=== PATIENT | female | born 1985 | race Caucasian/White ===

== ENCOUNTER 2022-06-12 01:31 | Emergency (ER) | payer BC ==
[~2022-06-12] VITALS: Ht 165.1 cm; Wt 75.0 kg
[2022-06-12 02:06] VITALS: BP 118/71
[2022-06-12] MEDS ORDERED: T3 PO (11:52)
[2022-06-12] MEDS ORDERED: ONDA4TAB50 PO (11:52)
== END 2022-06-12 04:01 | disposition left against medical advice (07) ==
LOC: ER 01:31
DX: Z53.21 Procedure and treatment not carried out due to patient leaving prior to being seen by health care provider (principal); R11.2 Nausea with vomiting, unspecified; R10.9 Unspecified abdominal pain; E11.9 Type 2 diabetes mellitus without complications

== ENCOUNTER 2022-06-12 08:04 | Emergency (ER) | payer BC ==
[~2022-06-12] VITALS: Ht 165.1 cm; Wt 75.0 kg
[2022-06-12] MEDS ORDERED: METOCLOPRAMIDE HCL 10MG/2ML VIAL IV STA (08:10)
[2022-06-12] MEDS ORDERED: SODIUM CHLORIDE 0.9% 1,000 ML IV ONE (08:15)
[2022-06-12 10:13] LABS: HEMATOCRIT. 39.4 % (36.0-48.0); HEMOGLOBIN. 13.3 g/dL (12.0-16.0); MEAN CORPUSCULAR HEMOGLOBIN 28.7 pg (28.0-32.0); MEAN CORPUSCULAR VOLUME 84.8 fL (81.0-99.0); MEAN PLATELET VOLUME 6.8 fl (7.4-10.4); PLATELET 403 x1000/uL (130-400); RED BLOOD CELL COUNT 4.65 mill/uL (4.2-5.4); RED CELL DISTRIBUTION WIDTH 12.7 % (11.6-14.6)
[2022-06-12] MEDS ORDERED: MORPHINE SULFATE 4 MG/ML CPJ (NOT FOR IM USE) IV ONE (10:15)
[2022-06-12 10:20] LABS: CHLORIDE 98 mEq/L (98-107)
[2022-06-12 10:26] LABS: INR 1.1; PROTHROMBIN TIME 11.5 sec (9.6-11.0)
[2022-06-12] MEDS ORDERED: METOCLOPRAMIDE HCL 10MG/2ML VIAL IV NR (10:30)
[2022-06-12] MEDS ORDERED: ONDANSETRON HCL 4MG/2ML INJ IV ONE (10:30)
[2022-06-12 10:32] LABS: HCG SCREEN NEGATIVE
[2022-06-12] MEDS ORDERED: DIPHENHYDRAMINE 50MG/ML VIAL IV ONE (10:45)
[2022-06-12 10:47] LABS: PLATELET ESTIMATE NORMAL
[2022-06-12] MEDS ORDERED: T3 PO (11:52)
[2022-06-12] MEDS ORDERED: ONDA4TAB50 PO (11:52)
[2022-06-12] MEDS ORDERED: ACETAMINOPHEN 325MG TABLET PO ONE (12:00)
[2022-06-12 12:29] VITALS: BP 122/70
== END 2022-06-12 12:31 | disposition home or self-care (01) ==
LOC: ER 08:04 → CANBEDREQ 06-13 00:42
DX: E11.43 Type 2 diabetes mellitus with diabetic autonomic (poly)neuropathy (principal); K31.84 Gastroparesis; E11.65 Type 2 diabetes mellitus with hyperglycemia; Z96.41 Presence of insulin pump (external) (internal)
CPT/HCPCS: 36415; 74176; 80053; 83690; 84703; 85025; 85610; 96361; 96374; 96375; 99284; J1200; J2270; J2765; J7030